=== PATIENT | female | born 1940 | race Caucasian/White ===

== ENCOUNTER 2016-09-19 13:38 | Day surgery (SDC) | payer MEDICARE, BC ==
[~2016-09-19 13:38] MED LIST: BENADRYL25 MG/TA1 NG; HTN MED; HYCOTUSS EXPEC480 ML PO; LEVAQUIN500 MG PO; MUCINEX DM TABL1 BOX PO; NORCO 5/325 TAB1 TAB PO; NORVASC; NORVASC2.5 MG; SYNTHROID75 MCG; TESSALON PERLE100 MG PO; THYROID PO; ZOCOR20 MG PO
[2016-09-19] MEDS ORDERED: PEPCID40 M1 PO (13:43)
[2016-09-19] MEDS ORDERED: SYNTHROID75 MC1 PO (14:26)
[2016-09-19] MEDS ORDERED: NORVASC10 M2 PO (14:27)
[2016-09-19] MEDS ORDERED: IBUPROFEN200 M2 PO (14:30)
== END 2016-09-19 16:25 ==
LOC: EDMED 13:38 → ENDOS 15:01
PROC: 0DB58ZX Excision of Esophagus, Via Natural or Artificial Opening Endoscopic, Diagnostic (ICD-10-PCS; principal; 2016-09-19)
PROC: 0D758ZZ Dilation of Esophagus, Via Natural or Artificial Opening Endoscopic (ICD-10-PCS; 2016-09-19)
DX: T18.128A Food in esophagus causing other injury, initial encounter (principal); K22.2 Esophageal obstruction; K20.0 Eosinophilic esophagitis; I10 Essential (primary) hypertension; M19.90 Unspecified osteoarthritis, unspecified site; E03.9 Hypothyroidism, unspecified; K21.9 Gastro-esophageal reflux disease without esophagitis; R11.11 Vomiting without nausea; Z79.899 Other long term (current) drug therapy; Z88.8 Allergy status to other drugs, medicaments and biological substances; Z90.710 Acquired absence of both cervix and uterus; Z96.653 Presence of artificial knee joint, bilateral
CPT/HCPCS: J7030